=== PATIENT | male | born 1930 | race Caucasian/White ===

== ENCOUNTER 2016-06-24 08:42 | Day surgery (SDC) | payer MEDICARE, OTHER | END 2016-06-24 14:22 | disposition short-term general hospital (02) | LOC: SURGOP 08:42 → CLPAIN 08:42 → EDSTATUS 10:46 → SURGOP 14:22 | PROC: 3E0R33Z Introduction of Anti-inflammatory into Spinal Canal, Percutaneous Approach (ICD-10-PCS; principal; 2016-06-24) | PROC: 3E0R3BZ Introduction of Anesthetic Agent into Spinal Canal, Percutaneous Approach (ICD-10-PCS; 2016-06-24) | PROC: BR19ZZZ Fluoroscopy of Lumbar Spine (ICD-10-PCS; 2016-06-24) | DX: M54.16 Radiculopathy, lumbar region (principal); Z88.0 Allergy status to penicillin | CPT/HCPCS: J1040; Q9967 ==